=== PATIENT | female | born 1995 | race Caucasian/White ===

== ENCOUNTER 2016-04-03 19:16 | Emergency (ER) | payer SELFPAY ==
[2016-04-03] MEDS ORDERED: SODIUM CHLORIDE 0.9% 1,000 ML ONE (21:56)
[2016-04-03] MEDS ORDERED: ONDANSETRON 4 MG VIAL ONE (21:56)
== END 2016-04-04 02:02 | disposition home or self-care (01) ==
LOC: ER 19:16
CPT/HCPCS: 76817; 96361; 96374